=== PATIENT | female | born 1970 | race Caucasian/White ===

== ENCOUNTER 2025-05-12 12:43 | Outpatient (CLI) | payer OTHER | END 2025-05-12 12:44 | disposition home or self-care (01) | LOC: CSHMRI 12:43 | PROVIDERS: ATTEND Neurological Surgery | DX: D49.6 Neoplasm of unspecified behavior of brain (principal); G93.89 Other specified disorders of brain; Z98.890 Other specified postprocedural states | CPT/HCPCS: 70553; 76376 ==